=== PATIENT | male | born 1960 | race Caucasian/White ===

== ENCOUNTER 2023-07-13 07:32 | Day surgery (SDC) | payer BC ==
[2023-07-06 15:29] LABS: BASOPHILS % (AUTO) 0.4 % (0-1); EOSINOPHILS # (AUTO) 0.1 X10'3 (0-0.9); EOSINOPHILS % (AUTO) 0.9 % (0-6); LYMPHOCYTES # (AUTO) 1.4 X10'3 (1.1-4.8); LYMPHOCYTES % (AUTO) 16.2 % (21-51); MEAN CORPUSCULAR HEMOGLOBIN 32.5 PG (27.0-31.0); MEAN CORPUSCULAR HGB CONC 33.8 g/dL (33.0-36.5); MEAN CORPUSCULAR VOLUME 96.3 FL (78-98); MEAN PLATELET VOLUME 7.1 FL (7.4-10.4); MONOCYTES # (AUTO) 0.7 X10'3 (0-0.9); MONOCYTES % (AUTO) 8.9 % (2-12); NEUTROPHILS # (AUTO) 6.1 X10'3 (1.8-7.7); NEUTROPHILS % (AUTO) 73.6 % (42-75); PRE OP HEMATOCRIT 42.8 % (42.0-52.0); PRE OP HEMOGLOBIN 14.5 g/dL (14.0-17.9); PRE OP PLATELET COUNT 226 X10'3 (140-440); PRE OP WHITE BLOOD COUNT 8.3 10'3 (4.8-10.8); RED BLOOD COUNT 4.45 X10'6 (4.70-6.10)
[2023-07-06 15:37] LABS: ALBUMIN 4.2 G/DL (3.4-5.0); ALBUMIN/GLOBULIN RATIO 1.2 (1.1-1.5); ALKALINE PHOSPHATASE 68 IU/L (46-116); BLOOD UREA NITROGEN 10 MG/DL (7-18); BUN/CREATININE RATIO 12.5 (10.0-20.0); CALCIUM 9.4 MG/DL (8.5-10.1); CHLORIDE 103 MMOL/L (99-107); PRE OP ALT 24 U/L (30-65); PRE OP ANION GAP 8 (8-16); PRE OP AST 18 U/L (10-37); PRE OP BILIRUB, TOTAL 0.8 MG/DL (0.0-1.0); PRE OP GLUCOSE 119 MG/DL (70-104); PRE OP SODIUM 140 MMOL/L (135-145); TOTAL CARBON DIOXIDE 29.4 MMOL/L (24-32); TOTAL PROTEIN 7.8 G/DL (6.4-8.2); eGFR > 90 ML/MIN
[~2023-07-13] VITALS: Ht 185.4 cm; Wt 79.1 kg
[2023-07-13] VITALS (14 sets, daily range): BP systolic 135–165; BP diastolic 72–96; PULSE 51–77; RESP 11–22; TEMP 97.7; O2SAT 97–100
[~2023-07-13 07:32] MED LIST: FISH OIL; MULT-1085 PO; VIT B; VIT C; VIT E; cefazolin 2gm/D5W 100mL 100 ML IV ONE; famotidine 20mg tablet PO ONE; ringers solution, lacted 1,000 ML IV SCH
[2023-07-13] MEDS ORDERED: BUPIVAcaine/PF 2.5 mg/ml (0.25%) 30ml vial IJ ONE (09:30)
[2023-07-13] MEDS ORDERED: LIDOcaine 1% 30ml preserv. free vial IJ ONE (09:30)
[2023-07-13] MEDS ORDERED: LIDOcaine 1% 30ml preserv. free vial ONE (09:49)
[2023-07-13] MEDS ORDERED: BUPIVAcaine/PF 2.5 mg/ml (0.25%) 30ml vial ONE (09:49)
[2023-07-13] MEDS ORDERED: sevoflurane 250ml liquid IH ONE (09:52)
[2023-07-13] MEDS ORDERED: midazolam 1 mg/ML 2ml injection ONE (10:02)
[2023-07-13] MEDS ORDERED: fentaNYL /PF 50mcg/ml 5ml ampule ONE (10:03)
[2023-07-13] MEDS ORDERED: propofol inj 20 ML IV ONE ×2 (10:20→11:37)
[2023-07-13] MEDS ORDERED: LIDOcaine 2% (20mg/ml) 5ml vial ONE (10:20)
[2023-07-13] MEDS ORDERED: dexamethasone sod phosphate 4mg/ml inj. ONE (10:20)
[2023-07-13] MEDS ORDERED: ondansetron/PF 4mg/2ml inj ONE (10:21)
[2023-07-13] MEDS ORDERED: rocuronium 10mg/ml inj IV ONE (10:21)
[2023-07-13] MEDS ORDERED: glycopyrrolate 0.2mg/ml inj ONE (11:37)
[2023-07-13] MEDS ORDERED: neostigmine methylsulfate 1 MG/ML 10ml vial ONE (11:37)
[2023-07-13] MEDS ORDERED: proCHLORperazine 10 MG/2 ml inj IV PRN (11:50)
[2023-07-13] MEDS ORDERED: labetalol 20mg/4ml (5mg/ml) syringe IV PRN (11:50)
[2023-07-13] MEDS ORDERED: meperidine/PF 25mg/ml syringe IV PRN ×3 (11:50)
[2023-07-13] MEDS ORDERED: ketorolac tromethamine 15mg/ml inj. IV ONE (11:50)
[2023-07-13] MEDS ORDERED: acetaminophen 1,000mg/100ml IV 100 ML IV PRN (11:50)
[2023-07-13] MEDS ORDERED: hydrALAZINE 20mg/ml inj. IV PRN (11:50)
[2023-07-13] MEDS ORDERED: ringers solution, lacted 1,000 ML IV SCH (11:50)
[2023-07-13] MEDS ORDERED: ondansetron/PF 4mg/2ml inj IV PRN (11:50)
[2023-07-13] MEDS ORDERED: morphine 2 MG/ML inj. syringe IV PRN (11:50)
[2023-07-13] MEDS ORDERED: HYDROcodone/acetaminophen 5mg/325mg tablet PO PRN (12:05)
[2023-07-13] MEDS: morphine 4 MG/ML inj SYRINge IV PRN ×2 (12:05→12:11)
== END 2023-07-13 14:09 | disposition home or self-care (01) ==
LOC: PAS 07:32
PROVIDERS: ATTEND Surgery
DX: K40.20 Bilateral inguinal hernia, without obstruction or gangrene, not specified as recurrent (principal); K42.9 Umbilical hernia without obstruction or gangrene; F17.210 Nicotine dependence, cigarettes, uncomplicated; M10.9 Gout, unspecified; Z72.89 Other problems related to lifestyle; Z96.651 Presence of right artificial knee joint; Z98.890 Other specified postprocedural states; Z79.899 Other long term (current) drug therapy; Z80.7 Family history of other malignant neoplasms of lymphoid, hematopoietic and related tissues
CPT/HCPCS: 36415; 49591; 49650; 80053; 82948; 85025; 93005; C1781; J0131; J0690; J1100; J1885; J2175; J2250; J2270; J2405; J2704; J2710; J3010; J3490; J7030; J7120; S2900; Z7506; Z7508; Z7512; A4215; A4618